=== PATIENT | female | born 1975 | race Caucasian/White ===

== ENCOUNTER 2016-12-07 19:57 | Emergency (ER) | payer BC, OTHER ==
[~2016-12-07] VITALS: Ht 157.5 cm; Wt 75.0 kg
[2016-12-07 20:01] VITALS: Ht 157.5 cm; Wt 75.0 kg
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
[2016-12-08 00:05] VITALS: BP 129/78; PULSE 64; RESP 19
== END 2016-12-08 00:28 | disposition home or self-care (01) ==
LOC: FTE 19:57
DX: S49.92XA Unspecified injury of left shoulder and upper arm, initial encounter (principal); S59.912A Unspecified injury of left forearm, initial encounter; S79.912A Unspecified injury of left hip, initial encounter; S79.922A Unspecified injury of left thigh, initial encounter; R42 Dizziness and giddiness; V49.40XA Driver injured in collision with unspecified motor vehicles in traffic accident, initial encounter
CPT/HCPCS: 70450; 73030; 73080; Z7502